=== PATIENT | female | born 1950 | race African-American/Black ===

== ENCOUNTER 2024-06-26 12:21 | Emergency (ER) | payer OTHER ==
[~2024-06-26] VITALS: Ht 182.9 cm; Wt 110.0 kg
[2024-06-26 12:25] VITALS: O2SAT 98
[2024-06-26 13:16] LABS: BASOPHILS % 2.1 % (0.0-2.0); DIFFERENTIAL COMMENT 0; EOSINOPHILS % 2.2 % (0.0-5.0); HEMATOCRIT. 39.5 % (36.0-48.0); HEMOGLOBIN. 12.8 g/dL (12.0-16.0); LYMPHOCYTES % 11.1 % (20.0-50.0); MEAN CORPUSCULAR HEMOGLOBIN 26.3 pg (28.0-32.0); MEAN CORPUSCULAR HGB CONC 32.4 g/dL (31.0-37.0); MEAN PLATELET VOLUME 11.1 fl (7.4-10.4); MONOCYTES % 10.3 % (2.0-8.0); NEUTROPHILS % 74.3 % (40.0-76.0); PLATELET 183 x1000/uL (130-400); RED BLOOD CELL COUNT 4.87 mill/uL (4.2-5.4); RED CELL DISTRIBUTION WIDTH 13.7 % (11.6-14.6)
[2024-06-26 13:20] LABS: CHLORIDE 100 mEq/L (98-107); POTASSIUM 4.8 mEq/L (3.5-5.1); SODIUM 135 mEq/L (136-145)
[2024-06-26 13:21] LABS: CALCIUM 8.9 mg/dL (8.7-10.4); CARBON DIOXIDE 27 mEq/L (21-32)
[2024-06-26 13:25] LABS: INR 1.1; PARTIAL THROMBOPLASTIN TIME 28.6 sec (23.4-31.0); PROTHROMBIN TIME 11.9 sec (9.6-11.0)
[2024-06-26 13:26] LABS: GLUCOSE 211 mg/dL (70-105); UREA NITROGEN BLOOD 54 mg/dL (9-23)
[2024-06-26 13:28] LABS: PHOSPHORUS 4.2 mg/dL (2.5-4.9); TROPONIN I HIGH SENSITIVITY 27 ng/L (3.0-34)
[2024-06-26] MEDS: ACETAMINOPHEN 325MG TABLET PO PRN (13:33)
[2024-06-26] MEDS: ASPIRIN 81MG TABLET PO ONE (13:33)
[2024-06-26 13:45] LABS: CREATININE 5.4 mg/dL (0.6-1.0)
[2024-06-26] MEDS: NITROGLYCERIN 0.4MG TABLET SL SL ONE (14:48)
[2024-06-26 17:32] VITALS: BP 135/76; PULSE 78; RESP 24; TEMP 36.7; O2SAT 99
== END 2024-06-26 18:05 | disposition short-term general hospital (02) ==
LOC: ER 12:21 → CANBEDREQ 14:58 → ER 18:05
DX: I13.2 Hypertensive heart and chronic kidney disease with heart failure and with stage 5 chronic kidney disease, or end stage renal disease (principal); E11.22 Type 2 diabetes mellitus with diabetic chronic kidney disease; N18.6 End stage renal disease; E78.00 Pure hypercholesterolemia, unspecified; I25.10 Atherosclerotic heart disease of native coronary artery without angina pectoris; I48.91 Unspecified atrial fibrillation; Z99.2 Dependence on renal dialysis; Z98.890 Other specified postprocedural states; Z79.899 Other long term (current) drug therapy
CPT/HCPCS: 36415; 71045; 80048; 83735; 83880; 84100; 84484; 85025; 93005; 99291; A4606